=== PATIENT | female | born 1935 | race Caucasian/White ===

== ENCOUNTER 2017-09-11 23:15 | Emergency (ER) | payer MEDICARE, BC ==
[~2017-09-11] VITALS: Ht 165.1 cm; Wt 75.0 kg
[~2017-09-11 23:15] MED LIST: ACET325S8 PO; ARIC10TA PO; LISI-363 PO; MEMA28CA PO; SERO50TA PO; TRAZ50TA78 PO
[2017-09-11 23:17] VITALS: BP 174/85; PULSE 84; RESP 18; TEMP 98.1; O2SAT 94
[2017-09-11 23:22] VITALS: BP 174/85; PULSE 66; RESP 16; O2SAT 94
--- NOTE | 2017-09-11 23:25 | PD ---
HPI Chief Complaint: Fall Time Seen by Provider: 23:20 Travel History International Travel<30 days: No Contact w/Intl Traveler<30days: No Traveled to known affect area: No History of Present Illness HPI 82-year-old female arrives after a fall at her RAD[facility]. She was found evidently leaned against the neighbors wall. She was assisted to her bed and EMS was activated. In the ER she complains of a twisting type of pain in the low back as well as itchiness. No fecal or urinary incontinence. No head trauma. Patient does not take blood thinner. Past medical history includes dementia and depression and anxiety. PFSH Past Medical History Anxiety: Yes Depression: Yes Dementia: Yes Diminished Hearing: No ?: Not : 4 Para: 4 Past Surgical History Appendectomy: Yes Social History Alcohol Use: Yes (RARE) Tobacco Use: No Substance Use: No Allergies-Medications (Allergen,Severity, Reaction): Coded Allergies: No Known Allergies (Verified Adverse Reaction, Unknown, 09/11/17) Reported Meds & Prescriptions Reported Meds & Active Scripts Active Cipro (Ciprofloxacin HCl) 250 Mg Tab 250 Mg PO BID 5 Days Reported Triamcinolone Topical (Triamcinolone Acetonide) 0.1 % Oint 1 Applic TOPICAL BID Propranolol (Propranolol HCl) 40 Mg Tab 40 Mg PO Q8HR Mapap (Acetaminophen) 325 Mg Tab 325 Mg PO Q4-6H PRN Risperidone 0.25 Mg Tab 0.25 Mg PO HS Vitamin B-12 (Cyanocobalamin) 1,000 Mcg Tab 1,000 Mcg PO DAILY Lisinopril 40 Mg Tab 40 Mg PO DAILY Desyrel (Trazodone HCl) 50 Mg Tab 25 Mg PO HS Aricept (Donepezil HCl) 10 Mg Tab 10 Mg PO HS Seroquel 50 mg (Quetiapine Fumarate) 50 Mg Tab 50 Mg PO BID Namenda XR (Memantine HCl) 28 Mg Caper 28 Mg PO DAILY Administer without regard to meals. Extended release capsules may be swallowed whole or entire contents of capsule may be sprinkled on applesauce and swallowed immediately; do not chew, crush, or divide. Tylenol (Acetaminophen) 325 Mg Tab 650 Mg PO Q6HR PRN Review of Systems Except as stated in HPI: all other systems reviewed are Neg General / Constitutional: No: Fever Physical Exam Narrative GENERAL: 82 yo F, WNWD, mild distress, speaking in full sentences SKIN: Warm and dry. HEAD: Atraumatic. Normocephalic. EYES: Pupils equal and round. No scleral icterus. No injection or drainage. ENT: No nasal bleeding or discharge. Mucous membranes pink and moist. NECK: Trachea midline. No JVD. CARDIOVASCULAR: Regular rate and rhythm. RESPIRATORY: No accessory muscle use. Clear to auscultation. Breath sounds equal bilaterally. GASTROINTESTINAL: Abdomen soft, non-tender, nondistended. Hepatic and splenic margins not palpable. MUSCULOSKELETAL: Patient can elevate each lower extremity without prohibited of pain. There is no tenderness with axial load. NEUROLOGICAL: Meritorious slightly impaired. The patient is awake and answers questions nonetheless. No focal cranial nerve deficit. Moving all extremities normally. PSYCHIATRIC: Appropriate mood and affect; insight and judgment normal. Data Data Last Documented VS Vital Signs Date Time Temp Pulse Resp B/P (MAP) Pulse Ox O2 Delivery O2 Flow Rate FiO2 09/12/17 01:21 09/11/17 23:23 94 Room Air 09/11/17 23:22 66 16 09/11/17 23:17 98.1 VS reviewed Orders Orders Complete Blood Count With Diff (09/11/17 23:20) Comprehensive Metabolic Panel (09/11/17 23:20) Urinalysis - C+S If Indicated (09/11/17 23:20) Pelvis, Ap Only (Routine) (09/11/17 23:20) Iv Access Insert/Monitor (09/11/17 23:20) Oximetry (09/11/17 23:20) Ecg Monitoring (09/11/17 23:20) Sodium Chloride 0.9% Flush (Ns Flush) (09/11/17 23:30) ^ Straight Catheter (09/11/17 23:20) Urine Culture (09/11/17 23:44) Ed Discharge Order (09/12/17 00:34) Ciprofloxacin (Cipro) (09/12/17 00:45) Labs Laboratory Tests Test 09/11/17 23:20 09/11/17 23:44 White Blood Count 8.2 TH/MM3 Red Blood Count 4.14 MIL/MM3 Hemoglobin 12.1 GM/DL Hematocrit 36.4 % Mean Corpuscular Volume 88.0 FL Mean Corpuscular Hemoglobin 29.3 PG Mean Corpuscular Hemoglobin Concent 33.3 % Red Cell Distribution Width 14.3 % Platelet Count 271 TH/MM3 Mean Platelet Volume 8.4 FL Neutrophils (%) (Auto) 75.9 % Lymphocytes (%) (Auto) 12.6 % Monocytes (%) (Auto) 8.7 % Eosinophils (%) (Auto) 2.3 % Basophils (%) (Auto) 0.5 % Neutrophils # (Auto) 6.2 TH/MM3 Lymphocytes # (Auto) 1.0 TH/MM3 Monocytes # (Auto) 0.7 TH/MM3 Eosinophils # (Auto) 0.2 TH/MM3 Basophils # (Auto) 0.0 TH/MM3 CBC Comment DIFF FINAL Differential Comment Blood Urea Nitrogen 16 MG/DL Creatinine 0.73 MG/DL Random Glucose 118 MG/DL Total Protein 7.1 GM/DL Albumin 3.4 GM/DL Calcium Level 8.7 MG/DL Alkaline Phosphatase 84 U/L Aspartate Amino Transf (AST/SGOT) 16 U/L Alanine Aminotransferase (ALT/SGPT) 15 U/L Total Bilirubin 0.3 MG/DL Sodium Level 140 MEQ/L Potassium Level 3.9 MEQ/L Chloride Level 105 MEQ/L Carbon Dioxide Level 25.8 MEQ/L Anion Gap 9 MEQ/L Estimat Glomerular Filtration Rate 76 ML/MIN Urine Color YELLOW Urine Turbidity HAZY Urine pH 6.5 Urine Specific [place] 1.019 Urine Protein TRACE mg/dL Urine Glucose (UA) NEG mg/dL Urine Ketones NEG mg/dL Urine Occult Blood NEG Urine Nitrite NEG Urine Bilirubin NEG Urine Urobilinogen LESS THAN 2.0 MG/DL Urine Leukocyte Esterase LARGE Urine RBC 4 /hpf Urine WBC 29 /hpf Urine Squamous Epithelial Cells 5 /hpf Urine Bacteria RARE /hpf Urine Hyaline Casts 3 /lpf Urine Mucus FEW /lpf Microscopic Urinalysis Comment CATH-CULTURE IND [facility] Medical Decision Making Medical Screen Exam Complete: Yes Emergency Medical Condition: Yes Medical Record Reviewed: Yes Differential Diagnosis femurs fracture, pelvis fracture, UTI Narrative Course CBC & BMP Diagram 09/11/17 23:20 Total Protein 7.1, Albumin 3.4, Calcium Level 8.7, Alkaline Phosphatase 84, Aspartate Amino Transf (AST/SGOT) 16, Alanine Aminotransferase (ALT/SGPT) 15, Total Bilirubin 0.3 UA: UTI present Last 24 hours Impressions Pelvis X-Ray 09/11/17 0370 Signed Impressions: Service Date/Time: Monday, September 11, 2017 23:26 - CONCLUSION: Intact pelvis. Pako Morales MD UTI present Cipro script dc home Diagnosis Primary Impression: Cystitis Additional Impression: Fall Qualified Codes: W19.XXXA - Unspecified fall, initial encounter Referrals: Primary Care Physician 2 days Additional Instructions: You have a choice when it comes to health care, and we are glad that you chose [facility]. Hopefully, we have met your expectations on today's visit. You are welcome to return to [facility] at any time, as we are committed to meeting the health care needs of our community. Med/Other Pt SpecificInfo: Prescription(s) given Scripts Ciprofloxacin (Cipro) 250 Mg Tab 250 MG PO BID for Infection for 5 Days, #10 TAB 0 Refills Prov: Jorge Maddox MD 09/12/17 Disposition: 01 DISCHARGE HOME Condition: Stable Jorge Maddox MD Sep 11, 2017 23:25
[2017-09-11] MEDS ORDERED: SODIUM CHLORIDE 0.9% FLUSH 10 ML FLUSH IVF PRN (23:30)
[2017-09-11 23:41] LABS: AUTOMATED NEUTROPHIL # 6.2 TH/MM3 (1.8-7.7); BASOPHIL % 0.5 % (0.0-2.0); EOSINOPHIL # 0.2 TH/MM3 (0-0.4); EOSINOPHIL % 2.3 % (0.0-4.0); HEMATOCRIT 36.4 % (35.0-46.0); HEMO FLAGS DIFF FINAL; LYMPH % 12.6 % (9.0-44.0); MEAN CORPUSCULAR HEMOGLOBIN 29.3 PG (27.0-34.0); MEAN CORPUSCULAR HGB CONC 33.3 % (32.0-36.0); MONO % 8.7 % (0.0-8.0); NEUT % 75.9 % (16.0-70.0); PLATELET COUNT 271 TH/MM3 (150-450); RED BLOOD COUNT 4.14 MIL/MM3 (4.00-5.30); RED CELL DISTRIBUTION WIDTH 14.3 % (11.6-17.2); WHITE BLOOD COUNT 8.2 TH/MM3 (4.0-11.0)
--- NOTE | 2017-09-11 23:47 | RADRPT ---
EXAM DATE/TIME: 09/11/2017 23:26 [facility] COMPARISON: No previous studies available for comparison. INDICATIONS : Pelvic pain post fall. MEDICAL HISTORY : None. SURGICAL HISTORY : None. ENCOUNTER: Initial ACUITY: 1 day PAIN SCORE: Non-responsive. LOCATION: Bilateral pelvis FINDINGS: A single frontal view of the pelvis demonstrates no evidence of fracture. The bony pelvic ring is in tact. Bony mineralization is normal. The soft tissues are intact. CONCLUSION: Intact pelvis. Pako Morales MD on September 11, 2017 at 23:45 Board Certified Radiologist. This report was verified electronically.
[2017-09-11] MEDS ORDERED: LISI40TA PO (23:49)
[2017-09-11] MEDS ORDERED: PROP40TA3 PO (23:50)
[2017-09-11] MEDS ORDERED: RISP0.252 PO (23:50)
[2017-09-11] MEDS ORDERED: TRIAM.1%T TOPICAL (23:50)
[2017-09-11] MEDS ORDERED: VITA10002 PO (23:50)
[2017-09-11] MEDS ORDERED: MAPA325T PO (23:50)
[2017-09-12 00:04] LABS: ANION GAP 9 MEQ/L (5-15); AST (GOT) 16 U/L (15-37); BICARBONATE 25.8 MEQ/L (21.0-32.0); BLOOD UREA NITROGEN 16 MG/DL (7-18); CHLORIDE 105 MEQ/L (98-107); GLOMERULAR FILTRATION RATE 76 ML/MIN (>89); POTASSIUM 3.9 MEQ/L (3.5-5.1); SODIUM (NA) 140 MEQ/L (136-145)
[2017-09-12 00:05] LABS: ALT (GPT) 15 U/L (10-53)
[2017-09-12 00:07] LABS: ALKALINE PHOSPHATASE 84 U/L (45-117); TOTAL BILIRUBIN ADULT 0.3 MG/DL (0.2-1.0)
[2017-09-12 00:11] LABS: BACTERIA, URINE RARE /hpf; BLOOD, URINE NEG (NEG); GLUCOSE,URINE NEG (NEG); HYALINE CAST, URINE 3 /lpf (RARE); KETONE, URINE NEG (NEG); MUCUS URINE FEW /lpf (OCC); NITRITE,URINE NEG (NEG); PH, URINE 6.5 (5.0-8.5); SQUAMOUS EPITHELIAL CELL URINE 5 /hpf (0-5); URINE COLOR YELLOW (YELLW/STRAW)
[2017-09-12 00:12] LABS: COMMENT (UR) CATH-CULTURE IND; CULTURE IF INDICATED CATH CULTURE IND
[2017-09-12] MEDS ORDERED: CIPR250T52 PO (00:33)
[2017-09-12] MEDS ORDERED: CIPROFLOXACIN 500 MG TAB PO ONE (00:45)
== END 2017-09-12 01:22 | disposition home or self-care (01) ==
LOC: NEPE 23:15
DX: N39.0 Urinary tract infection, site not specified (principal); F03.90 Unspecified dementia, unspecified severity, without behavioral disturbance, psychotic disturbance, mood disturbance, and anxiety; F41.9 Anxiety disorder, unspecified; F32.9 Major depressive disorder, single episode, unspecified; Z79.899 Other long term (current) drug therapy
CPT/HCPCS: 72170; 80053; 81001; 85025; 87086; 99284

== ENCOUNTER 2017-10-15 01:41 | Emergency (ER) | payer MEDICARE, BC ==
[~2017-10-15] VITALS: Ht 162.6 cm; Wt 61.5 kg
[~2017-10-15 01:41] MED LIST changes: +CIPR250T52 PO; -LISI-363 PO; +LISI40TA PO; +MAPA325T PO; +PROP40TA3 PO; +RISP0.252 PO; +TRIAM.1%T TOPICAL; +VITA10002 PO
[2017-10-15 01:46] VITALS: BP 123/73; PULSE 66; RESP 16; TEMP 97.4; O2SAT 97
--- NOTE | 2017-10-15 02:50 | RADRPT ---
EXAM DATE/TIME: 10/15/2017 02:23 [facility] COMPARISON: No previous studies available for comparison. INDICATIONS : History of recent fall with redness to anterior aspect of bilateral knees although patient denies any pain. MEDICAL HISTORY : None. SURGICAL HISTORY : None. ENCOUNTER: Initial ACUITY: 1 day PAIN SCORE: 0/10 LOCATION: Right knee FINDINGS: Four view examination of the right knee demonstrates no evidence of fracture or dislocation. Bony mi neralization is normal. The articular surfaces are intact. The suprapatellar soft tissues have a no rmal configuration. CONCLUSION: No acute bony injury Pako Argueta MD on October 15, 2017 at 2:47 Board Certified Radiologist. This report was verified electronically.
--- NOTE | 2017-10-15 02:51 | RADRPT ---
EXAM DATE/TIME: 10/15/2017 02:25 [facility] COMPARISON: No previous studies available for comparison. INDICATIONS : History of recent fall with redness to anterior aspect of bilateral knees although patient denies any pain. MEDICAL HISTORY : None. SURGICAL HISTORY : None. ENCOUNTER: Initial ACUITY: 1 day PAIN SCORE: 0/10 LOCATION: Left knee FINDINGS: Mild medial compartment joint space narrowing and marginal osteophyte formation. No evidence of fract ure or joint effusion. CONCLUSION: Arthritic changes. No acute bony process. Pako Argueta MD on October 15, 2017 at 2:48 Board Certified Radiologist. This report was verified electronically.
--- NOTE | 2017-10-15 02:52 | RADRPT ---
EXAM DATE/TIME: 10/15/2017 02:36 [facility] COMPARISON: No previous studies available for comparison. INDICATIONS : Trauma. Fell hitting back of head. RADIATION DOSE: 37.30 CTDIvol (mGy) MEDICAL HISTORY : Dementia. SURGICAL HISTORY : Appendectomy. ENCOUNTER: Initial ACUITY: 1 day PAIN SCALE: 0/10 LOCATION: cranial TECHNIQUE: Multiple contiguous axial images were obtained of the head. Using automated exposure control and adj ustment of the mA and/or kV according to patient size, radiation dose was kept as low as reasonably a chievable to obtain optimal diagnostic quality images. DICOM format image data is available electro nically for review and comparison. FINDINGS: There is a benign-appearing cyst in the medial right temporal region. No evidence of intracranial hem orrhage. Nothing to suggest acute infarction. No edema. Mild mucosal thickening in occasional facial sinuses. No evidence of skull fracture. CONCLUSION: No evidence of acute intracranial injury Pako Argueta MD on October 15, 2017 at 2:49 Board Certified Radiologist. This report was verified electronically.
--- NOTE | 2017-10-15 02:54 | RADRPT ---
EXAM DATE/TIME: 10/15/2017 02:36 [facility] COMPARISON: No previous studies available for comparison. INDICATIONS : Trauma. Fell hitting back of head. RADIATION DOSE: 21.72 CTDIvol (mGy) MEDICAL HISTORY : Dementia. SURGICAL HISTORY : Appendectomy. ENCOUNTER: Initial ACUITY: 1 day PAIN SCALE: 0/10 LOCATION: neck TECHNIQUE: Volumetric scanning of the cervical spine was performed. Multiplanar reconstructions in the sagittal, coronal and oblique axial planes were performed. Using automated exposure control and adjustment o f the mA and/or kV according to patient size, radiation dose was kept as low as reasonably achievable to obtain optimal diagnostic quality images. DICOM format image data is available electronically f or review and comparison. FINDINGS: The cervical spine is fused by flowing ventral ossification from C2-C6. Prominent osteophytes and cys t syndesmophytes are present elsewhere. There is no evidence of fracture. There is no evidence of par aspinal hematoma. Dorsal osteophytes most prominent at C5-6 produce a slight degree of bony canal com promise. Bony foraminal stenosis is present at the C5-6 level, right worse than left related to uncov ertebral osteophytic spurring. CONCLUSION: Prominent hyperostosis in mild degenerative change. No evidence of acute bony injury Pako Argueta MD on October 15, 2017 at 2:51 Board Certified Radiologist. This report was verified electronically.
--- NOTE | 2017-10-15 03:05 | PD ---
HPI Chief Complaint: Fall Time Seen by Provider: 01:57 Travel History International Travel<30 days: No Contact w/Intl Traveler<30days: No Traveled to known affect area: No History of Present Illness HPI 82 year-old woman, presents to the ED from nursing home for fall. EMS reports that staff Patient and Then Checked Phenergan 45 Minutes Later and Found That She Had Fallen. Patient Unable to Provide Any Additional History. Small Contusion to the Back of the Head. Contusions to Both Knees. No Other Evidence of Injury. History Past Medical History Narrative Medical Early dementia Hypertension Anxiety Depression Unsteady gait Tetanus Vaccination: Unknown : 4 Para: 4 Social History Alcohol Use: Yes (RARE) Tobacco Use: No Allergies-Medications (Allergen,Severity, Reaction): Coded Allergies: No Known Allergies (Verified Adverse Reaction, Unknown, 10/15/17) Reported Meds & Prescriptions Reported Meds & Active Scripts Active Cipro (Ciprofloxacin HCl) 250 Mg Tab 250 Mg PO BID 5 Days Reported Triamcinolone Topical (Triamcinolone Acetonide) 0.1 % Oint 1 Applic TOPICAL BID Propranolol (Propranolol HCl) 40 Mg Tab 40 Mg PO Q8HR Mapap (Acetaminophen) 325 Mg Tab 325 Mg PO Q4-6H PRN Risperidone 0.25 Mg Tab 0.25 Mg PO HS Vitamin B-12 (Cyanocobalamin) 1,000 Mcg Tab 1,000 Mcg PO DAILY Lisinopril 40 Mg Tab 40 Mg PO DAILY Desyrel (Trazodone HCl) 50 Mg Tab 25 Mg PO HS Aricept (Donepezil HCl) 10 Mg Tab 10 Mg PO HS Seroquel 50 mg (Quetiapine Fumarate) 50 Mg Tab 50 Mg PO BID Namenda XR (Memantine HCl) 28 Mg Caper 28 Mg PO DAILY Administer without regard to meals. Extended release capsules may be swallowed whole or entire contents of capsule may be sprinkled on applesauce and swallowed immediately; do not chew, crush, or divide. Tylenol (Acetaminophen) 325 Mg Tab 650 Mg PO Q6HR PRN Review of Systems ROS Limitations: Clinical Condition Physical Exam Exam Limitations: Clinical Condition Narrative GENERAL: 81 year-old woman, no acute distress. SKIN: Focused skin assessment warm/dry. HEAD: Normocephalic. Small abrasion to the back of the occiput. EYES: Pupils equal and round. No scleral icterus. No injection or drainage. ENT: No nasal bleeding or discharge. Mucous membranes pink and moist. NECK: Trachea midline. No JVD. CARDIOVASCULAR: Regular rate and rhythm. No murmur appreciated. RESPIRATORY: No accessory muscle use. Clear to auscultation. Breath sounds equal bilaterally. GASTROINTESTINAL: Abdomen soft, non-tender, nondistended. Hepatic and splenic margins not palpable. MUSCULOSKELETAL: No obvious deformities. Small contusions to the knees. Full range of motion without evidence of pain or tenderness. NEUROLOGICAL: Eyes closed. Mumble some and can talk. Data Data Last Documented VS Vital Signs Date Time Temp Pulse Resp B/P (MAP) Pulse Ox O2 Delivery O2 Flow Rate FiO2 10/15/17 02:59 97 Room Air 10/15/17 01:46 97.4 66 16 123/73 (90) Orders Orders Ct Brain W/O Iv Contrast(Rout) (10/15/17 ) Ct Cerv Spine W/O Contrast (10/15/17 ) Knee, Complete (4vws) (10/15/17 ) Knee, Complete (4vws) (10/15/17 ) MDM Medical Decision Making Medical Screen Exam Complete: Yes Emergency Medical Condition: Yes Interpretation(s) CT head: Negative C-spine CT no acute bony injury. Bilateral knee x-rays: Negative Differential Diagnosis Head injury, neck injury, knee injury, other Narrative Course Medical decision making 82 year-old woman presents emergent from falling fall. Looks well. Appears chronically debilitated. Imaging negative. Recommend outpatient follow-up. Diagnosis Primary Impression: Fall Patient Instructions: General Instructions Additional Instructions: Take caution to prevent falls. Follow up with her primary doctor. Return to the emergency department for any new or worsening symptoms. Med/Other Pt SpecificInfo: No Change to Meds Disposition: 01 DISCHARGE HOME Condition: Stable Noman Siddiqui MD Oct 15, 2017 03:05
[2017-10-15 07:00] VITALS: BP 145/67; PULSE 69; RESP 18; O2SAT 97
== END 2017-10-15 09:54 | disposition home or self-care (01) ==
LOC: NEPE 01:41
DX: S80.02XA Contusion of left knee, initial encounter (principal); S80.01XA Contusion of right knee, initial encounter; S00.03XA Contusion of scalp, initial encounter; F03.90 Unspecified dementia, unspecified severity, without behavioral disturbance, psychotic disturbance, mood disturbance, and anxiety; W19.XXXA Unspecified fall, initial encounter; Y92.129 Unspecified place in nursing home as the place of occurrence of the external cause
CPT/HCPCS: 70450; 72125; 73564; 99285